=== PATIENT | female | born 1975 | race Caucasian/White ===

== ENCOUNTER 2016-08-18 19:18 | Inpatient (IN) | payer OTHER ==
--- NOTE | 2016-08-18 19:24 | PDOC ---
Rapid Medical Evaluation Chief Complaint: Respiratory Time Seen by Provider: 08/18/16 19:19 Medical Evaluation: 08/18/16 19:19 41 yo F presents c/o 103.0 temp x4days with coughing,rhinnorhea. CXR done today at [facility]. Results were called into pt's pmd/Dr. Heck (+pneumonia). Dr. Heck present in the ER/triage req for ONLY cbc/diff and Cmp. Ceftriazone 1gm now and Zithromax 250mg now. Admit to Dr. Heck.
[2016-08-18] MEDS ORDERED: SODIUM CHLORIDE 1,000 ML IV STA (19:27)
[2016-08-18] MEDS ORDERED: CEFTRIAXONE 1 GM in DEXTROSE 5%-WATER - 50 ML IVPB ONE (19:28)
[2016-08-18] MEDS ORDERED: AZITHROMYCIN IVPB 250 MG in DEXTROSE 5%-WATER - 250 ML IVPB ONE (19:28)
--- NOTE | 2016-08-18 19:31 | PDOC ---
History of Present Illness - General Chief Complaint: Respiratory Stated Complaint: PNEUMONIA Time Seen by Provider: 08/18/16 19:19 History Source: Patient Exam Limitations: No Limitations - History of Present Illness Timing/Duration: reports: other (x4d) Possible Cause: Yes: no prior episodes Associated Symptoms: reports: fever/chills, nasal congestion Past History - Travel Traveled outside of the country in the last 30 days: No Close contact w/someone who was outside of country & ill: No - Past Medical History Allergies/Adverse Reactions: Allergies Allergy/AdvReac Type Severity Reaction Status Date / Time No Known Allergies Allergy Verified 08/18/16 19:20 Home Medications: Ambulatory Orders NK [No Known Home Medication] 08/18/16 Other medical history: ALL - Psycho/Social/Smoking Cessation Hx Suicidal Ideation: No Smoking History: Never smoked Hx Alcohol Use: No Drug/Substance Use Hx: No Respiratory Specific PMHX - Complaint Specific PMHX Angina: No Bronchitis: No Pneumonia: No Review of Systems - Review of Systems Able to Perform ROS?: Yes Is the patient limited Surinamese proficient: No Constitutional: Yes: Chills, Fever, Malaise Respiratory: Yes: Cough. No: Shortness of Breath Cardiac (ROS): No: Chest Pain Musculoskeletal: Yes: Muscle Weakness Neurological: No: Headache, Dizziness *Physical Exam - Vital Signs Last Vital Signs Temp Pulse Resp BP Pulse Ox 102.8 F H 114 H 20 137/73 93 L 08/18/16 19:21 08/18/16 19:21 08/18/16 19:21 08/18/16 19:21 08/18/16 19:21 - Physical Exam General Appearance: Yes: Nourished HEENT: positive: EOMI, RUTH, Normal ENT Inspection Neck: positive: Trachea midline, Normal Thyroid Respiratory/Chest: positive: Lungs Clear, Normal Breath Sounds Cardiovascular: positive: Regular Rhythm, Regular Rate, S1, S2 Gastrointestinal/Abdominal: positive: Normal Bowel Sounds Extremity: positive: Normal Capillary Refill Progress Note - Progress Note Progress Note: 41 yo F presents c/o fever/cough/general malaise x4d. Pt had a cxr today at the [facility]. Results were called into her PMD/Dr. Heck office this evening for RML pneumonia. Pt denies any eduardo, dizziness, lightheadedness, neck/ back pain, cp, abd pain, sob. Dr Heck present in the ER /triage area, Declines having ekg/repeat CXR. Will admit. *DC/Admit/Observation/Transfer Diagnosis at time of Disposition: Pneumonia Qualifiers: Pneumonia type: due to other aerobic Gram-negative bacteria Laterality: right Lung location: middle lobe of lung Qualified Code(s): J15.6 - Pneumonia due to other aerobic Gram-negative bacteria - Discharge Dispostion Condition at time of disposition: Guarded Admit: Yes
[2016-08-18 20:09] LABS: BASOPHIL 0.2 % (0-2.0); EOSINOPHIL 0.2 % (0-4.5); MCH 32.1 pg (25.7-33.7); MCHC 33.6 g/dl (32.0-36.0); MEAN CELL VOLUME 95.5 fl (80-96); MEAN PLT VOLUME 6.8 fl (7.5-11.1); NEUTROPHILS 84.7 % (42.8-82.8); PLATELET COUNT 182 K/MM3 (134-434); RDW 14.1 % (11.6-15.6); WHITE BLOOD COUNT 4.6 K/mm3 (4.0-10.0)
[2016-08-18] MEDS ORDERED: CEFTRIAXONE 50 ML ONE (20:37)
[2016-08-18] MEDS ORDERED: AZITHROMYCIN IVPB 250 ML IVPB ONE ×2 (20:37→21:46)
[2016-08-18 20:46] LABS: ALBUMIN 3.3 g/dl (3.4-5.0); ALK PHOS 88 U/L (45-117); ANION GAP 13 (8-16); BILIRUBIN,TOTAL 0.9 mg/dL (0.2-1.0); CALCIUM 8.5 mg/dL (8.5-10.1); CO2 26 mmol/L (21-32); CREATININE 0.6 mg/dL (0.55-1.02); GLUCOSE,RANDOM 105 mg/dL (74-106); SGOT/AST 21 U/L (15-37); SGPT/ALT 34 U/L (12-78); TOT PROT 7.4 g/dl (6.4-8.2)
[2016-08-18] MEDS ORDERED: ACETAMINOPHEN 325 MG TABLET (FP) PO ONE (21:05)
--- NOTE | 2016-08-18 21:05 | PDOC ---
*Physical Exam - Vital Signs Last Vital Signs Temp Pulse Resp BP Pulse Ox 102.8 F H 114 H 20 137/73 93 L 08/18/16 19:21 08/18/16 19:21 08/18/16 19:21 08/18/16 19:21 08/18/16 19:21 - Physical Exam Comments: 08/18/16 21:05 The patient was examined by JIM LAW under my direct supervision. I personally evaluated the patient. I concur with the above findings and the plan of care. ED Treatment Course - LABORATORY CBC & Chemistry Diagram: 08/18/16 20:00 08/18/16 20:00 - ADDITIONAL ORDERS Additional order review: Laboratory Results 08/18/16 20:00 Sodium 135 L Potassium 3.3 L Chloride 96 L Carbon Dioxide 26 Anion Gap 13 BUN 8 Creatinine 0.6 Creat Clearance w eGFR > 60 Random Glucose 105 Calcium 8.5 Total Bilirubin 0.9 AST 21 ALT 34 Alkaline Phosphatase 88 Total Protein 7.4 Albumin 3.3 L 08/18/16 20:00 Influenza Types A,B Antigen (RAMÓN) - Final Nasopharyngeal Swab - Final 08/18/16 20:00 RBC 3.46 L MCV 95.5 MCHC 33.6 RDW 14.1 MPV 6.8 L Neutrophils % 84.7 H Lymphocytes % 13.8 Monocytes % 1.1 L Eosinophils % 0.2 Basophils % 0.2 - Medications Given in the ED: ED Medications Discontinued Medications Generic Name Dose Route Start Last Admin Trade Name Freq PRN Reason Stop Dose Admin Ceftriaxone Sodium 1 gm/ 50 mls @ 100 mls/hr 08/18/16 19:28 08/18/16 20:56 Dextrose IVPB 08/18/16 19:57 100 mls/hr ONCE ONE Administration *DC/Admit/Observation/Transfer Diagnosis at time of Disposition: Pneumonia Qualifiers: Pneumonia type: due to other aerobic Gram-negative bacteria Laterality: right Lung location: middle lobe of lung Qualified Code(s): J15.6 - Pneumonia due to other aerobic Gram-negative bacteria - Discharge Dispostion Condition at time of disposition: Guarded
[2016-08-18] MEDS ORDERED: ACETAMINOPHEN 325 MG TABLET (FP) ONE (21:22)
[2016-08-18] MEDS ORDERED: POTASSIUM CHLORIDE TABS 20 MEQ TABLET.ER (FP) PO ONE ×2 (21:37→21:38)
[2016-08-18 23:38] VITALS: BMI 21.8
[2016-08-19] MEDS: guaiFENesin 200 MG/10 ML 10 ML UNIT-DOSE CUPS PO PRN ×2 (00:38→09:27)
[2016-08-19] MEDS: ACETAMINOPHEN 325 MG TABLET (FP) PO PRN ×2 (03:54→13:33)
--- NOTE | 2016-08-19 09:28 | HP ---
Admitting History and Physical - Primary Care Physician PCP: Vanessa Lovett - Admission Chief Complaint: Fever with cough and SOB History of Present Illness: 41 yrs old F with PMH of ALL in remission 10 months post- present with 4 days H/o fever, cough SOB and malaise, symptoms started after, flu like symptoms , no sick contact no recent travelling, yesterday felt extremely weak with high grade fever and chills, couldn't walk so visited PMD off ice , chest Xary ordered that shows Rt ML Pneumonia, considering severity of symptoms admired for IV abx and further evaluation, patient feels improved after IV abx and hydration, today still c/o cough, , fever and chills. History Source: Patient Limitations to Obtaining History: No Limitations - Past Medical History ...: No Heme/Onc: Yes: Other (ALL in remission) - Past Surgical History Past Surgical History: Yes: - Smoking History Smoking history: Never smoked Have you smoked in the past 12 months: No - Alcohol/Substance Use Hx Alcohol Use: No - Social History Usual Living Arrangement: Yes: With Spouse ADL: Independent Occupation: real estate firm manager History of Recent Travel: No Home Medications - Allergies Allergies/Adverse Reactions: Allergies Allergy/AdvReac Type Severity Reaction Status Date / Time No Known Allergies Allergy Verified 08/18/16 19:20 - Home Medications Home Medications: Ambulatory Orders NK [No Known Home Medication] 08/18/16 Family Disease History - Family Disease History Family Disease History: Diabetes: Father (DM), Mother (HTN) Review of Systems - Review of Systems Constitutional: reports: Fever, Lethargy, Loss of Appetite, Malaise, Weakness HENT: reports: Nasal Congestion Neck: reports: No Symptoms Cardiovascular: reports: No Symptoms Respiratory: reports: Cough, SOB on Exertion Gastrointestinal: reports: Nausea Genitourinary: reports: No Symptoms Musculoskeletal: reports: Muscle Pain Integumentary: reports: No Symptoms Neurological: reports: No Symptoms Endocrine: reports: No Symptoms Hematology/Lymphatic: reports: No Symptoms Psychiatric: reports: No Symptoms Physical Examination Vital Signs: Vital Signs Temperature 98.3 F 08/19/16 06:00 Pulse Rate 79 08/19/16 06:00 Respiratory Rate 20 08/19/16 06:00 Blood Pressure 92/51 08/19/16 06:00 O2 Sat by Pulse Oximetry (%) 95 08/19/16 04:00 Young F not in acute distress c/o SOB and cough HEENT: Mm moist, mild anemia, PERRLA, EOMI, no Nystagmus. NECK; No JVD, No Bruit, Thyroid normal , no Palpable nodes. 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 Derm; No rash or echymoses Labs: CBC, BMP 08/18/16 20:00 08/18/16 20:00 Imaging - Results Chest X-ray: Other (Yesterday performed at [facility] shows: Rt ML Pneumonia (report in the chart)) Problem List - Problems (1) Community acquired bacterial pneumonia Assessment/Plan: Patient present with community acquired bacterial Pneumonia, considering H/O ALL in the past and severity of the symptoms and clinical dehydration admitted for IV abx and fluid administration Cont IV Ceftriaxone and Achromycin F/U U legionella Ag Tylenol for fever F/U CBC, BMP in am Code(s): J15.9 - UNSPECIFIED BACTERIAL PNEUMONIA (2) ALL (acute lymphoid leukemia) in remission Assessment/Plan: H/O ALL at present in remission Code(s): C91.01 - ACUTE LYMPHOBLASTIC LEUKEMIA, IN REMISSION (3) Dehydration Assessment/Plan: IV Hydration F/U BMP Code(s): E86.0 - DEHYDRATION (4) Malnutrition Assessment/Plan: Patient has low albumin needs nutrition consult on discharge Code(s): E46 - UNSPECIFIED PROTEIN-CALORIE MALNUTRITION
[2016-08-19] MEDS: AZITHROMYCIN IVPB 250 MG in DEXTROSE 5%-WATER - 250 ML IVPB SCH (09:30)
[2016-08-19] MEDS: SODIUM CHLORIDE 1,000 ML IV SCH (10:10)
[2016-08-19] MEDS: cefTRIAXone 1 GM/50 ML BAG (PRE-DOCKED) IVPB SCH (13:27)
[2016-08-19] MEDS ORDERED: POTASSIUM CHLORIDE 40 MEQ/30 ML UNIT DOSE CUP PO SCH (17:15)
[2016-08-20 07:34] LABS: BASOPHIL 0.3 % (0-2.0); EOSINOPHIL 0.8 % (0-4.5); MCH 32.5 pg (25.7-33.7); MCHC 34.1 g/dl (32.0-36.0); MEAN CELL VOLUME 95.3 fl (80-96); MEAN PLT VOLUME 6.6 fl (7.5-11.1); PLATELET COUNT 168 K/MM3 (134-434); RDW 13.9 % (11.6-15.6); WHITE BLOOD COUNT 3.1 K/mm3 (4.0-10.0)
[2016-08-20 07:51] LABS: ALBUMIN 2.6 g/dl (3.4-5.0); ANION GAP 11 (8-16); BILIRUBIN,TOTAL 0.4 mg/dL (0.2-1.0); CO2 24 mmol/L (21-32); CREATININE 0.5 mg/dL (0.55-1.02); GLUCOSE,RANDOM 91 mg/dL (74-106); SGOT/AST 10 U/L (15-37); SGPT/ALT 27 U/L (12-78); TOT PROT 6.3 g/dl (6.4-8.2)
[2016-08-20 07:52] LABS: ALK PHOS 82 U/L (45-117)
--- NOTE | 2016-08-20 08:47 | PN ---
Progress Note, Physician Chief Complaint: Less febrile, feeling improed c/o lip sore and blood tinged sputum History of Present Illness: 41 yrs old F H/O ALL in remission present with Rt ML CABP, improving with IV abx so far all culture, influenza and Legionell are -ve. - Current Medication List Current Medications: Active Medications Acetaminophen (Tylenol -) 650 mg PO Q6H PRN PRN Reason: FEVER OR PAIN Last Admin: 08/19/16 13:33 Dose: 650 mg Ceftriaxone Sodium (Rocephin 1gm Ivpb (Pre-Docked)) 1 gm IVPB DAILY [facility] Last Admin: 08/19/16 13:27 Dose: 1 gm Guaifenesin (Robitussin -) 10 ml PO Q4H PRN Last Admin: 08/19/16 09:27 Dose: 10 ml Azithromycin 250 mg/ Dextrose 250 mls @ 250 mls/hr IVPB DAILY [facility] Last Admin: 08/19/16 09:30 Dose: 250 mls/hr Sodium Chloride (Normal Saline -) 1,000 mls @ 100 mls/hr IV ASDIR [facility] Last Admin: 08/19/16 10:10 Dose: 100 mls/hr Petrolatum (Sensi-Care Protective Ointment) 1 applic TP ASDIR PRN PRN Reason: HYGEINE - Objective Vital Signs: Vital Signs Temperature 99.0 F 08/20/16 06:00 Pulse Rate 80 08/20/16 06:00 Respiratory Rate 18 08/20/16 06:00 Blood Pressure 109/71 08/20/16 06:00 O2 Sat by Pulse Oximetry (%) 97 08/19/16 21:00 Constitutional: Yes: No Distress Eyes: Yes: WNL, Conjunctiva Clear HENT: Yes: Other (upper Lip Herpes Labialis) Neck: Yes: WNL, Supple Cardiovascular: Yes: Regular Rate and Rhythm Respiratory: Yes: Regular, Other (Rt LL Crepts and decrese AE) ...Rectal Exam: Yes: Deferred Breast(s): Yes: Other Musculoskeletal: Yes: WNL Extremities: Yes: WNL Labs: CBC, BMP 08/20/16 06:45 08/20/16 06:45 Problem List - Problems (1) Community acquired bacterial pneumonia Code(s): J15.9 - UNSPECIFIED BACTERIAL PNEUMONIA (2) ALL (acute lymphoid leukemia) in remission Code(s): C91.01 - ACUTE LYMPHOBLASTIC LEUKEMIA, IN REMISSION (3) Dehydration Code(s): E86.0 - DEHYDRATION (4) Malnutrition Code(s): E46 - UNSPECIFIED PROTEIN-CALORIE MALNUTRITION (5) Herpes labialis Code(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 Community acquired bacterial Pneumonia; Cough and blood tinged sputum, cont IV ceftriaxone and Achromycin, Tylenol fr fever, Sputum culture. 2. ALL in remission; No active issue 3. Hypokalemia: resolved 4. Anemia; FU anemia w/u 5. Malnutrition; Nutritin consult 6. Dehydration: resolved 7. Herpes Labials: Cold compresses and topical Zinc Oxide BID
[2016-08-20] MEDS ORDERED: PT OWN MED DRAWER 7, Y5N ONE (09:19)
[2016-08-20] MEDS: AZITHROMYCIN IVPB 250 MG in DEXTROSE 5%-WATER - 250 ML IVPB SCH (09:33)
[2016-08-20] MEDS: cefTRIAXone 1 GM/50 ML BAG (PRE-DOCKED) IVPB SCH (09:33)
[2016-08-20] MEDS: guaiFENesin 200 MG/10 ML 10 ML UNIT-DOSE CUPS PO PRN ×2 (09:34→22:52)
[2016-08-20] MEDS: SODIUM CHLORIDE 1,000 ML IV SCH (09:34)
[2016-08-20 09:59] LABS: FERRITIN 404.902 ng/ml (6.9-282.5)
[2016-08-20] MEDS ORDERED: ZINC OXIDE/PETROLATUM,WHITE 1 APPLIC OINT...G. TP PRN (12:00)
[2016-08-20] MEDS ORDERED: ZINC OXIDE/PETROLATUM,WHITE 1 APPLIC OINT...G. TP SCH (12:00)
[2016-08-20] MEDS ORDERED: BISMUTH SUBSALICYLATE 524 MG/30 ML UD PO ONE (16:00)
[2016-08-21] MEDS: SODIUM CHLORIDE 1,000 ML IV SCH ×2 (01:14→10:09)
[2016-08-21 07:39] VITALS: BP 116/63; PULSE 71; TEMP 98.5
--- NOTE | 2016-08-21 08:47 | DS ---
Physical Examination Vital Signs: Vital Signs Temperature 98.5 F 08/21/16 06:00 Pulse Rate 71 08/21/16 06:00 Respiratory Rate 18 08/21/16 06:00 Blood Pressure 116/63 08/21/16 06:00 O2 Sat by Pulse Oximetry (%) 99 08/20/16 22:00 Findings/Remarks: Admitted with Rt middle lobe pneumonia Treated with IV antibiotics,improved ,DC home on PO antibiotics Constitutional: Yes: No Distress Eyes: Yes: WNL HENT: Yes: WNL Neck: Yes: WNL Cardiovascular: Yes: WNL Respiratory: Yes: WNL Gastrointestinal: Yes: WNL ...Rectal Exam: Yes: Deferred Renal/: Yes: WNL Breast(s): Yes: WNL Musculoskeletal: Yes: WNL Edema: No ...Motor Strength: WNL Psychiatric: Yes: Alert Labs: CBC, BMP 08/20/16 06:45 08/20/16 06:45 Discharge Summary Reason For Visit: PNEUMONIA Current Active Problems ALL (acute lymphoid leukemia) in remission (Acute) Anemia (Acute) Community acquired bacterial pneumonia (Acute) Dehydration (Acute) Herpes labialis (Acute) Malnutrition (Acute) Pneumonia (Acute) Condition: Fair - Instructions Referrals: Vanessa Lovett MD [Primary Care Provider] - Disposition: HOME - Home Medications Comprehensive Discharge Medication List: Ambulatory Orders NK [No Known Home Medication] 08/18/16
[2016-08-21] MEDS: AZITHROMYCIN IVPB 250 MG in DEXTROSE 5%-WATER - 250 ML IVPB SCH (10:06)
[2016-08-21] MEDS: cefTRIAXone 1 GM/50 ML BAG (PRE-DOCKED) IVPB SCH (10:08)
[2016-08-21] MEDS: guaiFENesin 200 MG/10 ML 10 ML UNIT-DOSE CUPS PO PRN (10:27)
[2016-08-22 06:36] LABS: SERUM IRON 39 ug/dL (27-159); TOTAL IRON BINDING CAPACITY 178 ug/dL (250-450); UIBC 139 ug/dL (131-425)
== END 2016-08-21 11:58 | disposition home or self-care (01) | DRG 194 ==
LOC: JER 19:18 → JERBED 19:31 → J5S 22:42
PROVIDERS: ADMIT Internal Medicine; ATTEND Internal Medicine
DX: J15.9 Unspecified bacterial pneumonia (principal); C91.01 Acute lymphoblastic leukemia, in remission; E46 Unspecified protein-calorie malnutrition; E87.6 Hypokalemia; E86.0 Dehydration; D64.9 Anemia, unspecified; B00.1 Herpesviral vesicular dermatitis
CPT/HCPCS: 36415; 80053; 82607; 82728; 83540; 83550; 83605; 85025; 87040; 87070; 87205; 87254; 87324; 87449; 87804; 87899; 99284-25